=== PATIENT | female | born 1995 | race Two or more races ===

== ENCOUNTER 2019-07-07 14:32 | Emergency (ER) | payer MEDICAID ==
[~2019-07-07] VITALS: Ht 175.3 cm; Wt 67.5 kg
[2019-07-07 14:39] VITALS: BP 123/53
--- NOTE | 2019-07-07 15:26 | NUR ---
Patient given discharge instructions and they have confirmed that they understand the instructions. Patient ambulatory with steady gait.
== END 2019-07-07 15:41 | disposition home or self-care (01) ==
LOC: ED 15:20
DX: S62.306A Unspecified fracture of fifth metacarpal bone, right hand, initial encounter for closed fracture (principal); X58.XXXA Exposure to other specified factors, initial encounter; Y93.89 Activity, other specified; Y92.098 Other place in other non-institutional residence as the place of occurrence of the external cause; Y99.8 Other external cause status
CPT/HCPCS: 99281